=== PATIENT | female | born 1950 | race Caucasian/White ===

== ENCOUNTER 2025-05-31 08:12 | Day surgery (SDC) | payer OTHER, SELFPAY ==
[2025-05-31 07:39] LABS: Glucose - Point of Care 138 mg/dl (70-99)
== END 2025-05-31 09:40 | disposition home or self-care (01) ==
LOC: GI 08:12
PROVIDERS: ATTENDING PHYSICIAN Internal Medicine Gastroenterology; FAMILY PHYSICIAN Family Medicine
DX: Z12.11 Encounter for screening for malignant neoplasm of colon (principal); D12.3 Benign neoplasm of transverse colon; D12.7 Benign neoplasm of rectosigmoid junction; K57.30 Diverticulosis of large intestine without perforation or abscess without bleeding; K64.9 Unspecified hemorrhoids; R19.7 Diarrhea, unspecified
CPT/HCPCS: 45385; 45380; 82962; 88305